=== PATIENT | female | born 1985 | race African-American/Black ===

== ENCOUNTER 2016-11-01 16:00 | Emergency (ER) | payer OTHER ==
[~2016-11-01] VITALS: Ht 177.8 cm; Wt 88.9 kg
[2016-11-01 16:10] VITALS: BP 114/78
[2016-11-01] MEDS ORDERED: NKM (16:15)
[2016-11-01 16:37] VITALS: BP 110/88
--- NOTE | 2016-11-01 21:36 | Emergency Room Report ---
History of Present Illness General Chief Complaint: Wound Recheck/Suture Removal Source: Patient Present Illness HPI The patient is a 31-year-old female presenting for wound check and suture removal. Patient had a 2 weeks prior. The patient was told to followup with [facility] but states that it is too far. The patient denies any pain of the area and denies any discharge or bleeding. Patient does admit to numbness surrounding the surgical area. Patient denies any other symptoms coating of abdominal pain, nausea, vomiting, fever, chills, chest pain, shortness of breath, swelling Allergies: Coded Allergies: ASPIRIN (Verified Allergy, Unknown, 11/01/16) Uncoded Allergies: TAPE (Allergy, Unknown, 11/01/16) Patient History Past Medical History: see triage record Pertinent Family History: none Reviewed Nursing Documentation: PMH: Agreed, PSxH: Agreed Nursing Documentation-PMH Past Medical History: No Stated History Review of Systems All Other Systems: negative except mentioned in HPI Physical Exam Vital Signs Date Time Temp Pulse Resp B/P Pulse Ox O2 Delivery O2 Flow Rate FiO2 11/01/16 16:10 98.1 98 16 114/78 97 Room Air Sp02 EP Interpretation: reviewed, normal General Appearance: no apparent distress, alert, GCS 15, non-toxic Head: normocephalic, atraumatic Eyes: bilateral eye PERRL, bilateral eye normal inspection ENT: hearing grossly normal, normal pharynx, no angioedema, normal voice Respiratory: chest non-tender, lungs clear, normal breath sounds, speaking full sentences Cardiovascular #1: regular rate, rhythm, no edema Gastrointestinal: normal bowel sounds, non tender, soft, non-distended, no guarding, other - Horizontal surgical laceration consistent with a . Wound is well approximated. Well healing. No discharge or bleeding. Nontender Genitourinary: normal inspection, no CVA tenderness Musculoskeletal: back normal, gait/station normal, normal range of motion, non- tender Neurologic: alert, oriented x3, responsive, motor strength/tone normal, sensory intact, speech normal Psychiatric: judgement/insight normal, memory normal, mood/affect normal, no suicidal/homicidal ideation Skin: normal color, no rash, warm/dry, well hydrated Lymphatic: no adenopathy Medical Decision Making PA Attestation Dr. Yates is my supervising physician. Patient management was discussed with my supervising physician Diagnostic Impression: Primary Impression: Encounter for postoperative wound check ER Course The patient is a 31-year-old female presenting for wound check and suture removal Differential diagnosis considered: Wound infection, nonhealing wound, cellulitis , abscess Physical exam: Vitals within normal limits hematocrit is to rest Horizontal surgical laceration consistent with a . Wound is well approximated. Well healing. No discharge or bleeding. Nontender. There are no external sutures or natasha. The patient will be discharged home and will see [facility] as soon as possible for followup. ER precautions are given Last Vital Signs Date Time Temp Pulse Resp B/P Pulse Ox O2 Delivery O2 Flow Rate FiO2 11/01/16 16:37 98.1 88 16 110/88 98 Room Air Status: improved Disposition: HOME, SELF-CARE Condition: Improved Referrals: [facility] (PCP) Patient Instructions: Wound Check Additional Instructions: I discussed my findings with the patient. All questions and concerns have been answered. Treatment and medication compliance have been addressed. I advised the patient that they need to follow up with PMD in 3-5 days. Return to ED if symptoms worsen, new symptoms arise, or if needed for any reason. Patient verbalized understanding of discharge instructions. LINCOLN AMBRIZ Nov 01, 2016 21:36
== END 2016-11-01 16:39 | disposition home or self-care (01) ==
LOC: EMR 16:38
DX: Z48.89 Encounter for other specified surgical aftercare (principal); Z88.6 Allergy status to analgesic agent
CPT/HCPCS: 99281